=== PATIENT | female | born 1980 | race Caucasian/White ===

== ENCOUNTER → 2019-12-26 | Emergency (ER) | payer MEDICAID ==
[~2019-12-26] VITALS: Ht 172.7 cm; Wt 63.5 kg
[~2019-12-26] MED LIST: IBUPROFEN600 M1 ORAL; Ketorolac 30mg Inj IV ONE; LIDODERM700 M1 TOPIC; Methocarbamol 750mg tab ORAL ONE; ROBAXIN-500MG ORAL; VOLTAREN100 G1 TP
--- NOTE | 2019-12-26 15:43 | NUR ---
ED Nurse Note: Patient walked into ED from home c/o 11/28 constant, aching wrist pain that is tender to touch. Patient states the pain started approximately 5 days ago with no precipitating factors. She felt the pain after waking up in the morning. Patient states the pain started in the left proximal forarm and now has travelled to the left wrist. Patient states she types at on the computer most of the day for work.
--- NOTE | 2019-12-26 15:45 | NUR ---
ED Nurse Note: ERPA at bedside
--- NOTE | 2019-12-26 15:47 | NUR ---
ED Nurse Note: Xray at bedside.
[2019-12-26 15:57] VITALS: BP 105/65
--- NOTE | 2019-12-26 16:08 | Diagnostic Imaging Report ---
Indication: Trauma with pain Technique: Left wrist, 3 views Comparison: None. Findings: The osseous structures are intact. There is no fracture or destruction. The visualized joints are normal. The soft tissues are unremarkable. Impression: Negative examination.
--- NOTE | 2019-12-26 16:18 | Emergency Room Report ---
History of Present Illness General Chief Complaint: Upper Extremity Injury Source: Patient (Mendy Geronimo) Present Illness HPI 39-year-old female with no signal past medical history here complaining of left elbow and left wrist pain as well as left-sided shoulder and neck pain times few days. Patient denies any fall or injury. Patient is left-handed. Reports that she works from home and she types a lot working from home. Denies any heavy lifting. Denies any tingling numbness. Rates the pain 7 out of 10 at this time. Has not taken medication for symptom relief. Denies any weakness. Denies chest pain, shortness of breath, headache and dizziness. Phalen sign is positive. Denies . 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 COVID-19 Screening: Negative COVID-19 COVID-19 Testing Source: oral (Mendy Geronimo) Patient History Past Medical History: see triage record Past Surgical History: none Pertinent Family History: none Last Menstrual Period: 12/10/2019 Now: No Immunizations: UTD Reviewed Nursing Documentation: PMH: Agreed; PSxH: Agreed (Mendy Geronimo) Nursing Documentation-PMH Past Medical History: No History, Except For Hx Asthma: Yes (Mendy Geronimo) Review of Systems All Other Systems: negative except mentioned in HPI (Mendy Geronimo) Physical Exam Vital Signs Date Time Temp Pulse Resp B/P (MAP) Pulse Ox O2 Delivery O2 Flow Rate FiO2 12/26/19 15:35 97.0 75 19 105/65 (78) 99 Room Air Sp02 EP Interpretation: reviewed, normal General Appearance: no apparent distress, alert, GCS 15, non-toxic Head: normocephalic, atraumatic Eyes: bilateral eye normal inspection, bilateral eye PERRL ENT: hearing grossly normal, normal pharynx, no angioedema, normal voice Neck: full range of motion, supple, thyroid normal, no meningismus, no bony tend, supple/symm/no masses Respiratory: chest non-tender, lungs clear, normal breath sounds, speaking full sentences Cardiovascular #1: regular rate, rhythm, no edema, no murmur Cardiovascular #2: 2+ carotid (R), 2+ carotid (L), 2+ radial (R), 2+ radial (L) Gastrointestinal: normal bowel sounds, non tender, soft, non-distended, no guarding, no rebound Genitourinary: no CVA tenderness Musculoskeletal: back normal, normal range of motion, no calf tenderness, pelvis stable, non-tender, other - Phalen sign positive left wrist, left tennis elbow noted, no impingement sign noted Neurologic: alert, motor strength/tone normal, oriented x3, sensory intact, responsive, speech normal Psychiatric: judgement/insight normal, memory normal, mood/affect normal, no suicidal/homicidal ideation Skin: no rash Lymphatic: no adenopathy (Mendy Geronimo) Procedures Splinting Splinting #1: Consent: Verbal Location: Left wrist Pre-Made Type: velcro Splint: wrist Pre-Proc Neuro Vasc Exam: normal Post-Proc Neuro Vasc Exam: normal Patient Tolerated: Well Complications: None Splinting #2: Consent: Verbal Location: Left elbow Pre-Made Type: HAI wrap Pre-Proc Neuro Vasc Exam: normal Post-Proc Neuro Vasc Exam: normal Patient Tolerated: Well Complications: None (Mendy Geronimo) Medical Decision Making PA Attestation All diagnoses and treatment plans were reviewed and discussed with my supervising physician Dr. Avila (Mendy Geronimo) Diagnostic Impression: Primary Impression: Carpal tunnel syndrome Additional Impressions: Lateral epicondylitis Cervical strain Shoulder strain ER Course 39-year-old female with no signal past medical history here complaining of left elbow and left wrist pain as well as left-sided shoulder and neck pain times few days. Patient denies any fall or injury. Patient is left-handed. Reports that she works from home and she types a lot working from home. Denies any heavy lifting. Denies any tingling numbness. Rates the pain 7 out of 10 at this time. Has not taken medication for symptom relief. Denies any weakness. Denies chest pain, shortness of breath, headache and dizziness. Phalen sign is positive. Denies . Ddx considered but are not limited to : Wrist sprain, wrist strain, wrist fracture, carpal tunnel, tennis elbow, elbow sprain versus strain versus fracture, cervical sprain versus strain, shoulder fracture versus sprain versus strain Vital signs: are WNL, pt. is afebrile H&PE are most consistent with: Carpal tunnel, lateral epicondylitis, cervical strain with shoulder sprain ORDERS: Wrist x-ray, elbow x-ray, shoulder x-ray with extension into left- sided neck, Robaxin, Voltaren gel to apply to wrist and elbow, lidocaine patch to apply to neck and shoulder, Motrin ED INTERVENTIONS: Toradol, Robaxin DISCHARGE: At this time pt. is stable for d/c to home. Will provide printed patient care instructions, and any necessary prescriptions. Care plan and follow up instructions have been discussed with the patient prior to discharge. Patient take medication as directed, follow primary care provider for further evaluation and possible physical therapy, if worsening symptoms return to the emergency room (Mendy Geronimo) Other X-Ray Diagnostic Results Other X-Ray Diagnostic Results #1: X-Ray ordered: Left wrist # of Views/Limited Vs Complete: 3 View Indication: Pain EP Interpretation: Yes PA Xray: Interpretation reviewed, by supervising MD, and agrees with findings. Interpretation: no dislocation, no soft tissue swelling, no fractures Impression: No acute disease Electronically Signed by: Mendy Correa PA-C Other X-Ray Diagnostic Results #2: X-Ray ordered: Left elbow # of Views/Limited Vs Complete: 3 View Indication: Pain EP Interpretation: Yes PA Xray: Interpretation reviewed, by supervising MD, and agrees with findings. Interpretation: no dislocation, no soft tissue swelling, no fractures Impression: No acute disease Electronically Signed by: Mendy Correa PA-C Other X-Ray Diagnostic Results #3: X-Ray ordered: Left shoulder # of Views/Limited Vs Complete: 3 View Indication: Pain EP Interpretation: Yes PA Xray: Interpretation reviewed, by supervising MD, and agrees with findings. Interpretation: no dislocation, no soft tissue swelling, no fractures Impression: No acute disease Electronically Signed by: Mendy Correa PA-C (Mendy Geronimo) Other X-Ray Diagnostic Results #1: Electronically Signed by: P A documentation of Xray reviewed by me and is accurate, Casa Avila MD Other X-Ray Diagnostic Results #2: Electronically Signed by: P A documentation of Xray reviewed by me and is accurate, Casa Avila MD Other X-Ray Diagnostic Results #3: Electronically Signed by: P A documentation of Xray reviewed by me and is accurate, Casa Avila MD (Casa Avila MD) Last Vital Signs Date Time Temp Pulse Resp B/P (MAP) Pulse Ox O2 Delivery O2 Flow Rate FiO2 12/26/19 15:57 97.0 71 19 105/65 99 Room Air (Mendy Geronimo) Disposition: HOME, SELF-CARE Condition: Stable Scripts Lidocaine Patch* (Lidoderm Patch*) 1 Each Adh..patch 1 PATCH TOPIC DAILY, #30 PATCH Patch(es) may remain in place for up to 12 hours in any 24-hour period. Prov: Mendy Geronimo 12/26/19 Diclofenac Sodium (VOLTAREN) 100 Gm Gel..gram. 2 GM TP TID, #100 GM apply to wrist and elbow Prov: Mendy Geronimo 12/26/19 Ibuprofen* (MOTRIN*) 600 Mg Tablet 600 MG ORAL Q6H PRN for For Pain, #30 TAB 0 Refills Prov: Mendy Geronimo 12/26/19 Methocarbamol* (ROBAXIN-500*) 500 Mg Tablet 500 MG ORAL TID PRN for For Pain, #15 TAB 0 Refills Prov: Mendy Geronimo 12/26/19 Patient Instructions: Carpal Tunnel Syndrome, [id number], Cervical Strain and Sprain With Rehab-SportsMed, Tennis Elbow, [id number] Additional Instructions: take medication as directed, avoid strenuous physical activity and lifting heavy object with the affected side, follow with your primary care provider for further evaluation, imaging may be needed, and physical therapy in the future. If worsening symptoms return to the emergency room Mendy Geronimo Dec 26, 2019 16:18 Casa Avila MD Dec 27, 2019 05:06
--- NOTE | 2019-12-26 16:28 | Diagnostic Imaging Report ---
. Indication: Reason For Exam: PAIN Technique: Left shoulder, 3 views Comparison: None. Findings: The osseous structures are intact. There is no fracture or destruction. The visualized joints are normal. The soft tissues are unremarkable. Impression: Normal left shoulder.
--- NOTE | 2019-12-26 16:29 | Diagnostic Imaging Report ---
Indication: Reason For Exam: PAIN Technique: XRAY Elbow Min 3v L Comparison: None. Findings: The osseous structures are intact. There is no fracture or destruction. No effusion. The visualized joints are normal. The soft tissues are unremarkable. Impression: Normal left elbow.
== END | disposition home or self-care (01) ==
LOC: EMR 15:45
DX: G56.02 Carpal tunnel syndrome, left upper limb (principal); M77.12 Lateral epicondylitis, left elbow; S16.1XXA Strain of muscle, fascia and tendon at neck level, initial encounter; S46.912A Strain of unspecified muscle, fascia and tendon at shoulder and upper arm level, left arm, initial encounter; J45.909 Unspecified asthma, uncomplicated; X58.XXXA Exposure to other specified factors, initial encounter; Y93.89 Activity, other specified; Y92.019 Unspecified place in single-family (private) house as the place of occurrence of the external cause
CPT/HCPCS: 73030; 73080; 73110; 96374; J1885; Z7502; 99284

== ENCOUNTER 2020-07-02 17:30 | Emergency (ER) | payer MEDICAID ==
[~2020-07-02] VITALS: Ht 170.2 cm; Wt 59.9 kg
[~2020-07-02 17:30] MED LIST changes: -Ketorolac 30mg Inj IV ONE; -Methocarbamol 750mg tab ORAL ONE
--- NOTE | 2020-07-02 17:33 | NUR ---
ED Nurse Note:not in the room
--- NOTE | 2020-07-02 17:47 | NUR ---
ED Nurse Note:pt stated that she has been coughing for two weeks now. hx of asthma, covid test was neg. states she feels like she is getting worse and her inhaler isn't working. pt stated that she received her first covid shot last week. pt doesn't appear to be in any respiratory distress at this time. pending xray.
[2020-07-02 17:50] VITALS: BP 118/75
--- NOTE | 2020-07-02 17:51 | Emergency Room Report ---
History of Present Illness General Chief Complaint: Asthma Source: Patient Present Illness HPI Disclaimer: Please note that this report is being documented using DRAGON technology. This can lead to erroneous entry secondary to incorrect interpretation by the dictating instrument. HPI: 39-year-old female history of asthma presents for evaluation of shortness of breath. Patient states for the past 2 and half weeks she has had tightness when breathing. Intermittent wheezing. Persistent nonproductive cough. Gets relief from her albuterol inhaler. Ran out of Advair a few days ago. She has als completed a course of azithromycin. Denies fever or chills. Tested negative for COVID-19 10 days ago. Received first dose of Covid vaccine 7 days ago. Denies fever, chills, nausea, vomiting, chest pain, palpitations, diarrhea or other symptoms. Denies trauma. Denies leg swelling. Denies recent surgery, immobilization or hormone use. No long-distance travel. 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 EOMI. Cardiovascular: RRR. S1 and S2 normal. No murmur appreciated Resp: Normal work of breathing. Intermittent cough during exam. Scattered expiratory wheeze. No respiratory distress. Skin: Intact. No abrasions, laceration or rash over the exposed skin MSK: Normal tone and bulk. Moving all extremities. No obvious deformity. Neuro: Awake and alert. Mentating appropriately. Medical Decision Making Diagnostic Impression: Primary Impression: Cough ER Course 39-year-old female presents for evaluation of several weeks persistent cough. Concern for pneumonia or mild asthma exacerbation. She has been vaccinated against COVID-19 1 week ago and tested negative for COVID-19 approximately 5 days after cough onset. PERC negative. Chest x-ray shows no infiltrate. Will refill Advair and start on prednisone for possible cough variant asthma. She has already completed a course of azithromycin. Otherwise well-appearing. Stable for outpatient follow-up. Instructed to return with new or worsening symptoms. Chest X-Ray Diagnostic Results Chest X-Ray Diagnostic Results : Chest X-Ray Ordered: Yes # of Views/Limited/Complete: 1 View Indication: Shortness of Breath EP Interpretation: Yes Interpretation: no consolidation, no effusion, no pneumothorax, no acute cardiopulmonary disease Impression: No acute disease Electronically Signed by: Electronically signed by Dr. Wiliam Phan MD Last Vital Signs Date Time Temp Pulse Resp B/P (MAP) Pulse Ox O2 Delivery O2 Flow Rate FiO2 07/02/20 17:37 98.2 85 18 118/75 (89) 98 Room Air Disposition: HOME, SELF-CARE Condition: Stable Scripts Fluticasone/Salmeterol (Advair 250-50 Diskus) 1 Each Blst.w.dev 1 PUFF INH EVERY 12 HOURS for 30 Days, #1 EA Prov: Wiliam Phan MD 07/02/20 Prednisone* (PREDNISONE*) 20 Mg Tablet 40 MG ORAL DAILY for 5 Days, #10 TAB Prov: Wiliam Phan MD 07/02/20 Wiliam Phan MD Jul 02, 2020 17:51
[2020-07-02] MEDS ORDERED: PREDNISONE20 MG ORAL (18:03)
[2020-07-02] MEDS ORDERED: ADVAIR 250-501 EACH INH (18:09)
--- NOTE | 2020-07-02 18:13 | NUR ---
ER DISCHARGE NOTE: Patient is cleared to be discharged per ERMD, pt is aox4, on room air, with stable vital signs. pt was given dc and prescription instructions, pt was able to verbalize understanding. pt is able to ambulate with steady gait. pt took all belongings.
--- NOTE | 2020-07-03 14:16 | Diagnostic Imaging Report ---
Indication: Cough Technique: XRAY Chest 1v Comparison: None Findings: Heart size and mediastinal contours are within normal limits for AP technique. There is symmetric haziness of the bilateral lower lungs which is likely artifactual related to attenuation from overlying soft tissue/breast. There is no focal airspace consolidation, pneumothorax or pleural effusion. Osseous structures demonstrate no acute abnormality. Impression: No radiographic evidence of acute cardiopulmonary disease.
== END 2020-07-02 18:14 | disposition home or self-care (01) ==
LOC: EMR 17:58
DX: R05 Cough (principal); J45.909 Unspecified asthma, uncomplicated; Z79.899 Other long term (current) drug therapy
CPT/HCPCS: 71045; Z7502; 99283